=== PATIENT | male | born 2000 | race Caucasian/White ===

== ENCOUNTER 2019-08-25 08:13 | Emergency (ER) | payer OTHER, SELFPAY ==
[2019-08-25 08:20] VITALS: BP 126/73; PULSE 74; RESP 18; TEMP 36.9; O2SAT 99
--- NOTE | 2019-08-25 08:21 | DI.RAD.S_ITS ---
PROCEDURE: XR FINGER RT MIN 2V INDICATIONS: injury TECHNIQUE: AP hand, 2 views of the fourth finger(s) acquired. COMPARISON: None. FINDINGS: Bones: No dislocations. No suspicious bony lesions. There is a diagonal distal tuft fracture involving the fourth distal phalanx, with overlying soft tissue swelling. No foreign body seen. Soft tissues: No suspicious soft tissue calcifications. IMPRESSION: Distal tuft fracture, minimally displaced, no foreign body. Dictated by: Nik Daly M.D. on 08/25/2019 at 8:58 Approved by: Nik Daly M.D. on 08/25/2019 at 8:59
[2019-08-25] MEDS: TET,DIPH,PERTUSS(ACELL),VAC/PF 0.5 ML SYRINGE IM (08:25)
--- NOTE | 2019-08-25 09:06 | ED_ITS ---
HPI - General Adult General Chief complaint: Extremity Injury, Upper Stated complaint: right hand middle fingers injury Time Seen by Provider: 08/25/19 08:19 Source: patient Mode of arrival: Ambulatory Limitations: no limitations History of Present Illness HPI narrative: [id number] 19-year-old male here for evaluation of injury sustained to his right ring finger. Patient works at [employer]. He sustained a crush injury to his right finger. Covered with bandage. Came to the emergency department. Last tetanus shot 5 years ago. Related Data Allergies Allergy/AdvReac Type Severity Reaction Status Date / Time No Known Drug Allergies Allergy Verified 08/25/19 08:24 Review of Systems ENT Ears, Nose, Mouth, and Throat: Denies disequilibrium Musculoskeletal Comments: Right ring finger injury Integumentary/Breasts Comments: bleeding from the tip of the right ring finger Neurologic Neurologic: Denies paresthesias and Denies disequilibrium Hematologic/Lymphatic Hematologic/Lymphatic: Denies easy bleeding and Denies easy bruising Patient History Medical History Healthy adult (Acute) Social History Smoking Status: Former smoker Smoking Status: Former smoker alcohol intake frequency: a few times a week Alcohol type: beer Substance Use Type: marijuana Exam Initial Vital Signs Initial Vital Signs: Vital Signs Temperature 98.4 F 08/25/19 08:20 Pulse Rate 74 08/25/19 08:20 Respiratory Rate 18 08/25/19 08:20 Blood Pressure 126/73 08/25/19 08:20 Pulse Oximetry 99 08/25/19 08:20 Cardio Pulses: radial pulses present on the right Skin Lesions: no lesions Rashes: no rashes Neuro Sensory Exam: no sensory deficits noted Extrem Other: right MCP and PIP joint unremarkable the ring finger. The D IP joint tender to palpation. Psych Appearance: grossly normal and well kempt Procedures Nail Trephination Time out: Yes Location (finger): right Location (toes): fourth digit Method of drainage: needle Procedure successful: Yes Patient tolerated procedure: well and no complications Orthopedic Splinting/Casting Injury #1: Side: right Upper Extremity Injury Location: finger Upper Extremity Immobilizer: aluminum form splint Post splinting neuro exam: intact and no change Post splinting vascular exam: no change Placed by: Nursing Course Orders Ordered: ED Orders 08/25/19 08:21 XR finger RT min 2V Stat Discontinued Medications Diphtheria/Tetanus/Acell Pertussis (Adacel) 0.5 ml IM .ONCE ONE Stop: 08/25/19 08:23 Last Admin: 08/25/19 08:25 Dose: 0.5 ml Documented by: HOMA Vital Signs Vital signs: Vital Signs - 8 hr 08/25/19 08:20 Temperature 98.4 F Pulse Rate 74 Respiratory Rate 18 Blood Pressure 126/73 Pulse Oximetry 99 Medical Decision Making Imaging Data Extremity x-ray #1: Radiologist's Impression: [address] [address] XRay Report Signed Patient: Jaime Carter JMR#: [id number] : 2000Acct:[id number] Age/Sex: 19 / MDate of Service: 08/25/19 Loc: ED Accession Number: [id number] Procedure: XR finger RT min 2V Ordering Provider: Rogerio Sanon D.O. PROCEDURE: XR FINGER RT MIN 2V INDICATIONS: injury TECHNIQUE: AP hand, 2 views of the fourth finger(s) acquired. COMPARISON: None. FINDINGS: Bones: No dislocations. No suspicious bony lesions. There is a diagonal dist al tuft fracture involving the fourth distal phalanx, with overlying soft tissue swelling. No foreign body seen. Soft tissues: No suspicious soft tissue calcifications. IMPRESSION: Distal tuft fracture, minimally displaced, no foreign body. Dictated by: Nik Daly M.D. on 08/25/2019 at 8:58 Approved by: Nik Daly M.D. on 08/25/2019 at 8:59 [facility] Narrative Medical decision making narrative: Neurovascularly intact. Does have a subungual hematoma which was cleared by nail trephination. Placed in aluminum splint. L and I paperwork completed. Patient was given return precautions and follow-up instructions. He expressed understanding and agreement. Discharge Plan Departure Patient Disposition: Home Clinical Impression: Fracture of distal phalanx of finger of right hand Subungual hematoma of digit of hand Qualifiers: Encounter type: initial encounter Qualified Code(s): S60.10XA - Contusion of unspecified finger with damage to nail, initial encounter Instructions: DI for Finger Fracture Activity Restrictions/Additional Instructions: the splint does need to stay on for the next 4 weeks. You need to keep it clean and dry. Contact your primary provider for follow-up. You can work however you do need to keep the splint clean and dry. You can wear a glove over the area. Tylenol and or ibuprofen for any discomfort. Stand Alone Forms: Work Release Note
[2019-08-25] MEDS: IBUPROFEN 400 MG TABLET 800 MG PO (09:15)
[2019-08-25 09:43] VITALS: PULSE 78; RESP 14
== END 2019-08-25 09:43 | disposition home or self-care (01) ==
LOC: ED 09:18
PROVIDERS: Emergency Provider Emergency Medicine
DX: S62.634A Displaced fracture of distal phalanx of right ring finger, initial encounter for closed fracture (principal); S60.10XA Contusion of unspecified finger with damage to nail, initial encounter; Y99.0 Civilian activity done for income or pay; Z23 Encounter for immunization
CPT/HCPCS: 11740; 73140; 90471; 99284; 90715

== ENCOUNTER → 2023-04-15 09:36 | Outpatient (CLI) | payer OTHER, SELFPAY | PROVIDERS: Visit Provider Physician Assistant | DX: J02.9 Acute pharyngitis, unspecified (principal); J35.1 Hypertrophy of tonsils | CPT/HCPCS: 87070 ==

== ENCOUNTER → 2023-04-18 16:06 | Outpatient (CLI) | payer OTHER, SELFPAY ==
[2023-04-18 18:30] LABS: Influenza A - CEPHEID Flu A NEGATIVE (NEGATIVE); Influenza B - CEPHEID Flu B NEGATIVE (NEGATIVE); Respiratory Syncytial Virus Negative (Negative)
[2023-04-18 18:40] LABS: COVID-19 CEPHEID 4-PLEX PCR Negative (Negative)
== END ==
PROVIDERS: Visit Provider Physician Assistant
DX: J02.9 Acute pharyngitis, unspecified (principal)
CPT/HCPCS: 0241U; 87070